=== PATIENT | male | born 1990 | race Hispanic/Latino ===

== ENCOUNTER 2018-02-13 14:07 | Emergency (ER) | payer OTHER ==
[2018-02-13] MEDS ORDERED: Ibuprofen 800 MG TAB ONE (14:34)
--- NOTE | 2018-02-13 15:10 | RAD ---
RIGHT HAND 3 VIEWS: Date: 02/13/18 HISTORY: Injury to hand. FINDINGS: Carpals appear intact. The metacarpals and phalanges appear intact. MCP and IP joints unremarkable. IMPRESSION: No acute osseous abnormality. POS: [facility]
== END 2018-02-13 14:57 ==
LOC: NAV ERS 14:07
DX: S60.221A Contusion of right hand, initial encounter (principal); W23.0XXA Caught, crushed, jammed, or pinched between moving objects, initial encounter; Y92.149 Unspecified place in prison as the place of occurrence of the external cause